=== PATIENT | female | born 1960 | race Caucasian/White ===

== ENCOUNTER 2023-10-31 23:20 | Inpatient (IN) | payer OTHER ==
[~2023-10-31] VITALS: Ht 175.3 cm; Wt 115.7 kg
[2023-10-31 23:37] VITALS: BP 122/70; PULSE 130; RESP 20; TEMP 99.5; O2SAT 96
[2023-10-31 23:39] VITALS: O2SAT 98
[2023-11-01 00:18] LABS: BASOPHILS # (AUTO) 0.1 K/uL (0.00-0.22); BASOPHILS % (AUTO) 0.6 % (0.0-2.0); EOSINOPHILS % (AUTO) 0.3 % (0.0-4.0); HEMATOCRIT 36.5 % (36-48); HEMOGLOBIN 11.9 g/dL (12.0-16.0); LYMPHOCYTES # (AUTO) 0.9 K/uL (2.5-16.5); LYMPHOCYTES % (AUTO) 7.1 % (20.5-51.1); MEAN CORPUSCULAR HEMOGLOBIN 29 pg (27-31); MEAN CORPUSCULAR HGB CONC 33 g/dL (33-37); MEAN CORPUSCULAR VOLUME 89.2 fL (80-94); MONOCYTES % (AUTO) 7.3 % (1.7-9.3); NEUTROPHILS # (AUTO) 11.2 K/uL (1.8-7.7); NEUTROPHILS % (AUTO) 84.7 % (42.2-75.2); PLATELET COUNT (AUTO) 246 K/uL (140-450); RED CELL DISTRIBUTION WIDTH 15.3 % (11.6-13.7); WHITE BLOOD COUNT (AUTO) 13.2 K/uL (4.8-10.8)
[2023-11-01 00:39] LABS: INR 1.05 (0.8-1.2); PARTIAL THROMBOPLASTIN TIME 24.5 secs (22-35.6)
[2023-11-01 00:41] LABS: LACTIC ACID 1.5 mmol/L (0.4-2.0)
[2023-11-01 00:42] LABS: CHLORIDE 102 mmol/L (98-107); POTASSIUM 3.1 mmol/L (3.5-5.1); SODIUM SERUM 139 mmol/L (136-145)
[2023-11-01 01:04] LABS: ALBUMIN 2.4 g/dL (3.4-5.0); ALKALINE PHOSPHATASE 117 U/L (50-136); ANION GAP 13.5 (8-16); ASPARTATE AMINOTRANSFERASE 19 U/L (15-37); CARBON DIOXIDE 27.5 mmol/L (21-32); CREATININE 0.8 mg/dL (0.6-1.3); GFR ARICAN-AMERICAN 93 mL/min (>90); GFR NON ARICAN-AMERICAN 77 mL/min (>90); GLUCOSE 175 mg/dL (74-106); TOTAL BILIRUBIN 0.7 mg/dL (0.0-1.0); TOTAL PROTEIN, SERUM 7.2 g/dL (6.4-8.2); UREA NITROGEN, BLOOD 10 mg/dL (7-18)
[2023-11-01 01:16] LABS: APPEARANCE,URINE CLEAR (CLEAR); BILIRUBIN,URINE NEGATIVE (NEGATIVE); BLOOD, URINE NEGATIVE (NEGATIVE); COLOR,URINE YELLOW (YELLOW); LEUKOCYTE ESTERASE ,URINE NEGATIVE (NEGATIVE); NITRITE, URINE NEGATIVE (NEGATIVE); PROTEIN,URINE TRACE (NEGATIVE); UGLUCOSE NEGATIVE (NEGATIVE); UROBILINOGEN,URINE 0.2 EU/dL (0.2 - 1)
[2023-11-01 01:20] LABS: ALANINE AMINOTRANSFERASE 54 U/L (12-78)
[2023-11-01 01:41] LABS: TOTAL BILIRUBIN 0.6 mg/dL (0.0-1.0)
[2023-11-01 01:42] LABS: ALBUMIN 2.4 g/dL (3.4-5.0); TOTAL PROTEIN, SERUM 7.2 g/dL (6.4-8.2)
[2023-11-01 02:10] VITALS: O2SAT 98
[2023-11-01] MEDS: NACL 0.9% 1,000 ML IV ONE ×2 (03:16→10:32)
[2023-11-01] MEDS: KETOROLAC 30 MG/ML VIAL IVP ONE (03:17)
[2023-11-01] MEDS: ONDANSETRON 4 MG/2 ML VIAL IVP ONE (03:17)
[2023-11-01] MEDS ORDERED: PIPERACILLIN/TAZOBACTAM 3.375 GM VIAL IV ONE (04:27)
[2023-11-01] MEDS: MORPHINE SULFATE 4 MG/ML SYR IVP ONE ×2 (04:49→08:20)
[2023-11-01] MEDS: PIPERACILLIN/TAZOBACTAM 3.375 GM in DEXTROSE 5% 50 ML IV ONE (04:50)
[2023-11-01] MEDS: LEVOFLOXACIN 500 MG/D5W PREMIX 100 ML IV ONE (04:59)
[2023-11-01] MEDS ORDERED: LOVENOX 1MG/KG Q12H SUBQ SCH ×3 (06:35→11:10)
[2023-11-01] MEDS ORDERED: ENOXAPARIN 120 MG/0.8 ML SYR SUBQ ONE (06:53)
[2023-11-01] MEDS: ENOXAPARIN 120 MG/0.8 ML SYR SUBQ SCH ×2 (07:02→22:59)
[2023-11-01] MEDS ORDERED: ENOXAPARIN 120 MG/0.8 ML SYR SUBQ SCH (09:00)
[2023-11-01] MEDS ORDERED: HYDROcodone/APAP 5/325 MG 1 TAB TAB PO PRN (10:10)
[2023-11-01] MEDS ORDERED: ONDANSETRON 4 MG/2 ML VIAL IVP PRN (10:10)
[2023-11-01] MEDS: NACL 0.9% 1,000 ML IV SCH (10:10)
[2023-11-01] MEDS ORDERED: METO25TA PO (10:45)
[2023-11-01] MEDS ORDERED: CIPR500T4 PO (10:45)
[2023-11-01] MEDS ORDERED: SEMA0.258 SQ (10:45)
[2023-11-01 11:15] VITALS: BP 131/87; PULSE 101; RESP 18; TEMP 97.6; O2SAT 99
[2023-11-01 16:00] VITALS: BP 146/71; PULSE 114; RESP 18; TEMP 97.6; O2SAT 95
[2023-11-01] MEDS: POTASSIUM CHLORIDE 10 MEQ TABER PO SCH (18:08)
[2023-11-01] MEDS: ACETAMINOPHEN 325 MG TAB PO PRN (18:14)
[2023-11-01 19:35] VITALS: PULSE 111; RESP 17
[2023-11-01 20:00] VITALS: BP 120/71; PULSE 114; PULSE 115; RESP 18; TEMP 97.8; O2SAT 95
[2023-11-01] MEDS: METOPROLOL 25 MG TAB PO SCH (22:59)
[2023-11-02] VITALS (14 sets, daily range): BP systolic 94–158; BP diastolic 64–93; PULSE 91–128; RESP 16–22; TEMP 97.1–98.5; O2SAT 92–99
[2023-11-02] MEDS: LEVOFLOXACIN 500 MG/D5W PREMIX 100 ML IV SCH (05:43)
[2023-11-02 06:56] LABS: BASOPHILS % (AUTO) 0.4 % (0.0-2.0); EOSINOPHILS # (AUTO) 0.1 K/uL (0-0.4); HEMATOCRIT 30.6 % (36-48); LYMPHOCYTES # (AUTO) 0.9 K/uL (2.5-16.5); LYMPHOCYTES % (AUTO) 12.3 % (20.5-51.1); MEAN CORPUSCULAR HEMOGLOBIN 30 pg (27-31); MEAN CORPUSCULAR HGB CONC 33 g/dL (33-37); MEAN CORPUSCULAR VOLUME 90.2 fL (80-94); MONOCYTES # (AUTO) 0.7 K/uL (0.8-1.0); MONOCYTES % (AUTO) 8.9 % (1.7-9.3); NEUTROPHILS # (AUTO) 5.9 K/uL (1.8-7.7); NEUTROPHILS % (AUTO) 77.4 % (42.2-75.2); PLATELET COUNT (AUTO) 222 K/uL (140-450); RED CELL DISTRIBUTION WIDTH 15.1 % (11.6-13.7); WHITE BLOOD COUNT (AUTO) 7.6 K/uL (4.8-10.8)
[2023-11-02 07:45] LABS: ANION GAP 10.5 (8-16); CALCIUM 8.9 mg/dL (8.5-10.1); CARBON DIOXIDE 29.1 mmol/L (21-32); CREATININE 0.6 mg/dL (0.6-1.3); POTASSIUM 3.6 mmol/L (3.5-5.1)
[2023-11-02] MEDS ORDERED: CLINICAL MONITORING MC PRN (11:15)
[2023-11-02] MEDS: APIXABAN 2.5 MG TAB PO SCH (22:07)
[2023-11-02] MEDS: METOPROLOL 50 MG TAB PO SCH (22:08)
[2023-11-03] VITALS (9 sets, daily range): BP systolic 125–150; BP diastolic 75–85; PULSE 20–118; RESP 20; TEMP 97–97.6; O2SAT 95–99
[2023-11-03 07:07] LABS: BASOPHILS % (AUTO) 0.5 % (0.0-2.0); EOSINOPHILS # (AUTO) 0.1 K/uL (0-0.4); EOSINOPHILS % (AUTO) 1.4 % (0.0-4.0); HEMOGLOBIN 10.5 g/dL (12.0-16.0); LYMPHOCYTES # (AUTO) 0.8 K/uL (2.5-16.5); LYMPHOCYTES % (AUTO) 11.6 % (20.5-51.1); MEAN CORPUSCULAR HEMOGLOBIN 29 pg (27-31); MEAN CORPUSCULAR HGB CONC 33 g/dL (33-37); MEAN CORPUSCULAR VOLUME 89.7 fL (80-94); MONOCYTES # (AUTO) 0.5 K/uL (0.8-1.0); MONOCYTES % (AUTO) 6.6 % (1.7-9.3); NEUTROPHILS # (AUTO) 5.5 K/uL (1.8-7.7); NEUTROPHILS % (AUTO) 79.9 % (42.2-75.2); PLATELET COUNT (AUTO) 280 K/uL (140-450); RED BLOOD CELL COUNT(AUTO) 3.57 MIL/uL (4.20-5.40); WHITE BLOOD COUNT (AUTO) 6.8 K/uL (4.8-10.8)
[2023-11-03 07:24] LABS: CALCIUM 8.9 mg/dL (8.5-10.1); CARBON DIOXIDE 30.3 mmol/L (21-32); CREATININE 0.7 mg/dL (0.6-1.3); POTASSIUM 3.3 mmol/L (3.5-5.1)
[2023-11-03] MEDS: POTASSIUM CHLORIDE 10 MEQ TABER PO PRN (08:12)
[2023-11-03] MEDS ORDERED: APIX5TAB PO (11:20)
[2023-11-03] MEDS ORDERED: METO50TA21 PO (11:20)
== END 2023-11-03 16:47 | disposition home or self-care (01) | DRG 175 ==
LOC: MED 23:20 → MTU 11-01 10:11
PROVIDERS: ADMIT Student in an Organized Health Care Education/Training Program; ATTEND Student in an Organized Health Care Education/Training Program
DX: I26.99 Other pulmonary embolism without acute cor pulmonale (principal); J96.01 Acute respiratory failure with hypoxia; N39.0 Urinary tract infection, site not specified; E66.9 Obesity, unspecified; I10 Essential (primary) hypertension; Z68.37 Body mass index [BMI] 37.0-37.9, adult; Z88.0 Allergy status to penicillin; Z79.899 Other long term (current) drug therapy
CPT/HCPCS: 36415; 71045; 71275; 76705; 80048; 80053; 80076; 81003; 82550; 83605; 83880; 84484; 85025; 85379; 85610; 85730; 87040; 87081; 87086; 93005; 93970; 94617; 96361; 96365; 96375; 97112; 97116; 99291; 99292; J1650; J1885; J1956; J2270; J2405; J2543; Q0092; Q9967